=== PATIENT | female | born 1955 | race Caucasian/White ===

== ENCOUNTER 2018-07-21 06:10 | Day surgery (SDC) | payer OTHER ==
[2018-07-21] MEDS ORDERED: MIDAZOLAM 1 MG/ML 2 ML INJ ×2 (08:12)
[2018-07-21] MEDS ORDERED: FENTAnyl 50 MCG/ML VIAL (08:12)
== END 2018-07-21 10:16 | disposition home or self-care (01) ==
LOC: GIL 06:10
DX: Z12.11 Encounter for screening for malignant neoplasm of colon (principal); K64.8 Other hemorrhoids; K64.4 Residual hemorrhoidal skin tags; K57.30 Diverticulosis of large intestine without perforation or abscess without bleeding
CPT/HCPCS: 45378